=== PATIENT | female | born 1950 | race Caucasian/White ===

== ENCOUNTER 2016-08-03 10:39 | Observation (INO) | payer MEDICARE, BC ==
[2016-08-03 10:23] LABS: ALBUMIN 2.9 gm/dl (3.4-5.0); CALCIUM 9.8 mg/dl (8.5-10.1); POTASSIUM 4.2 mMol/L (3.5-5.1)
[2016-08-03] MEDS ORDERED: SODIUM CHLORIDE 0.9% 1000ML 1,000 ML IV ONE (15:04)
[2016-08-03] MEDS ORDERED: SODIUM CHLORIDE 0.9% FLUSH 10 ML SOL IV PRN (15:08)
[2016-08-03] MEDS ORDERED: ONDANSETRON HCL 4 MG/2 ML SOL IV PRN (15:21)
[2016-08-03] MEDS ORDERED: LEVOFLOXACIN 500 MG (PREMIX) 500 MG/100 ML SOL IV SCH (15:30)
[2016-08-03] MEDS: DEXTROSE/SALINE 0.45/KCL 20MEQ 1,000 ML/1,000 ML SOL IV SCH ×2 (16:19→23:37)
[2016-08-03] MEDS: DIPHENHYDRAMINE 50 MG/ML SOL IV PRN ×2 (17:14→23:36)
[2016-08-03] MEDS: OXYCODONE HYDROCHLORIDE 5 MG TAB PO PRN ×2 (17:25→23:36)
[2016-08-03] MEDS: POLYETHYLENE GLYCOL 17 GM/1 TBS PDS PO SCH (17:26)
[2016-08-03] MEDS: SENNOSIDES A AND B 8.6 MG TAB PO SCH ×2 (17:26→21:19)
[2016-08-03] MEDS ORDERED: ALBUTEROL HFA 60 PUFF/INHALER INH PRN (17:31)
[2016-08-03] MEDS ORDERED: CETIRIZINE HCL PO PRN (17:31)
[2016-08-03] MEDS ORDERED: PSEUDOEPHEDRINE PO PRN (17:31)
[2016-08-03] MEDS ORDERED: TRAMADOL HYDROCHLORIDE 50 MG TAB PO PRN (17:31)
[2016-08-03] MEDS ORDERED: PIPERACILLIN/TAZOBACT 3.375 GM PDS IV ONE ×2 (17:58→23:28)
[2016-08-03] MEDS ORDERED: SODIUM CHLORIDE 0.9% 100 ML 100 ML IV ONE (17:59)
[2016-08-03] MEDS ORDERED: MEDROL DOSPAK PO SCH (18:00)
[2016-08-03] MEDS ORDERED: POTASSIUM CHLORIDE 10 MEQ TER ONE (18:01)
[2016-08-03] MEDS: POTASSIUM CHLORIDE 10 MEQ CAPSULE PO SCH (18:20)
[2016-08-03] MEDS: PIPERACILLIN/TAZOBACT 3.375 GM 3.375 GM in SODIUM CHLORIDE 0.9% 100 ML 100 ML IV SCH ×2 (18:21→23:37)
[2016-08-03] MEDS ORDERED: CETIRIZINE HYDROCHLORIDE 10 MG TAB PO PRN (20:22)
[2016-08-03] MEDS ORDERED: SOLUMEDROL 125 MG/2 ML 125 MG/2 ML PDS IV ONE (21:00)
[2016-08-03] MEDS: CELECOXIB 100 MG CAP PO SCH (21:19)
[2016-08-04] MEDS: PIPERACILLIN/TAZOBACT 3.375 GM 3.375 GM in SODIUM CHLORIDE 0.9% 100 ML 100 ML IV SCH ×2 (05:56→13:18)
[2016-08-04 07:14] LABS: BASOPHILS % (AUTO) 1 % (0-3); EOSINOPHILS % (AUTO) 0 % (0-9); HEMATOCRIT 33 % (35-47); MEAN CORPUSCULAR VOLUME 83 fL (81-99); MONOCYTES % (AUTO) 1.9 % (0-12); NEUTROPHILS % (AUTO) 92.7 % (37-80)
[2016-08-04 07:25] LABS: CALCIUM 8.6 mg/dl (8.5-10.1); POTASSIUM 4.3 mMol/L (3.5-5.1)
[2016-08-04] MEDS: DEXTROSE/SALINE 0.45/KCL 20MEQ 1,000 ML/1,000 ML SOL IV SCH (07:39)
[2016-08-04 07:48] VITALS: BP 138/84; PULSE 106; RESP 20; TEMP 97.9; O2SAT 94
[2016-08-04] MEDS ORDERED: POTASSIUM CHLORIDE 10 MEQ TER ONE (08:41)
[2016-08-04] MEDS: POTASSIUM CHLORIDE 10 MEQ CAPSULE PO SCH (08:55)
[2016-08-04] MEDS: POLYETHYLENE GLYCOL 17 GM/1 TBS PDS PO SCH (08:56)
[2016-08-04] MEDS: SENNOSIDES A AND B 8.6 MG TAB PO SCH (08:56)
[2016-08-04] MEDS ORDERED: PANTOPRAZOLE SODIUM 40 MG ECT PO SCH (09:00)
[2016-08-04] MEDS ORDERED: OMEPRAZOLE 20 MG CAPSULE PO SCH (09:00)
[2016-08-04] MEDS ORDERED: LISINOPRIL 5 MG TAB PO SCH (09:00)
[2016-08-04] MEDS: CELECOXIB 100 MG CAP PO SCH (10:36)
[2016-08-04] MEDS ORDERED: POTASSIUM CHLORIDE 10 MEQ TER PO SCH (18:00)
[2016-08-04] MEDS ORDERED: FLUTICASONE/SALMETEROL 250/50 1 PUFF DSK INH PRN (21:00)
== END 2016-08-04 11:20 | disposition home or self-care (01) | DRG 690 ==
LOC: RAD 10:39 → EDSTATUS 11:00 → ACUTE CARE 14:50 → UNDOADMOB 14:50 → ACUTE CARE 14:55
PROVIDERS: ADMIT Emergency Medicine; ATTEND Emergency Medicine
DX: N10 Acute pyelonephritis (principal)
CPT/HCPCS: 71020; 72131; 74178; 80048; 80053; 85025; 99070; J1200; J1956; J2405; J2543; J2930; Q9967

== ENCOUNTER 2016-08-13 08:40 | Observation (INO) | payer MEDICARE, BC ==
[2016-08-13] MEDS ORDERED: HEPARIN 500 Unit PRE-FILL 100 U/ML SOL IV PRN (09:00)
[2016-08-13 09:48] LABS: BASOPHILS % (AUTO) 1 % (0-3); EOSINOPHILS % (AUTO) 7 % (0-9); HEMATOCRIT 35 % (35-47); MEAN CORPUSCULAR HGB CONC 33.2 gm/dl (32.0-36.0); MEAN CORPUSCULAR VOLUME 82 fL (81-99); MONOCYTES % (AUTO) 6.7 % (0-12); NEUTROPHILS % (AUTO) 71.2 % (37-80)
[2016-08-13 10:00] LABS: ALBUMIN 2.6 gm/dl (3.4-5.0); CALCIUM 8.6 mg/dl (8.5-10.1); POTASSIUM 3.7 mMol/L (3.5-5.1)
[2016-08-13] MEDS ORDERED: SODIUM CHLORIDE 0.9% 250 ML 250 ML IV ONE (12:19)
[2016-08-13] MEDS ORDERED: VANCOMYCIN HYDROCHLORIDE 500 MG PDS IV ONE (12:19)
[2016-08-13] MEDS ORDERED: TRAMADOL HYDROCHLORIDE 50 MG TAB PO PRN (12:31)
[2016-08-13] MEDS ORDERED: ALBUTEROL HFA 60 PUFF/INHALER INH PRN (12:31)
[2016-08-13] MEDS ORDERED: FLUTICASONE/SALMETEROL 250/50 1 PUFF DSK INH PRN (12:31)
[2016-08-13] MEDS: SODIUM CHLORIDE 0.9% FLUSH 10 ML SOL IV SCH ×2 (12:33→20:58)
[2016-08-13] MEDS: CEFTAZIDIME 1 GM PDS IV SCH ×2 (12:33→20:53)
[2016-08-13] MEDS: VANCOMYCIN HCL 500 MG PDS 1,000 MG in SODIUM CHLORIDE 0.9% 250 ML 250 ML IV SCH (13:09)
[2016-08-13] MEDS: APAP/CODEINE 300/30 TAB PO PRN ×3 (14:15→21:09)
[2016-08-13] MEDS: ACETAMINOPHEN 500 MG 500 MG TAB PO SCH (21:08)
[2016-08-13] MEDS: CELECOXIB 100 MG CAP PO SCH (21:08)
[2016-08-13] MEDS: DIPHENHYDRAMINE 25 MG CAP PO SCH (21:08)
[2016-08-13] MEDS ORDERED: PATIENT EDUCATION 1 MISC PRN (21:18)
[2016-08-14] MEDS ORDERED: SODIUM CHLORIDE 0.9% 250 ML 250 ML IV ONE ×3 (00:33→20:42)
[2016-08-14] MEDS ORDERED: VANCOMYCIN HYDROCHLORIDE 500 MG PDS IV ONE ×3 (00:33→20:40)
[2016-08-14] MEDS: VANCOMYCIN HCL 500 MG PDS 1,000 MG in SODIUM CHLORIDE 0.9% 250 ML 250 ML IV SCH ×2 (01:00→12:24)
[2016-08-14] MEDS: CEFTAZIDIME 1 GM PDS IV SCH ×3 (04:40→21:02)
[2016-08-14] MEDS: SODIUM CHLORIDE 0.9% FLUSH 10 ML SOL IV SCH ×4 (04:41→21:01)
[2016-08-14] MEDS: APAP/CODEINE 300/30 TAB PO PRN ×6 (04:41→21:02)
[2016-08-14] MEDS: ENOXAPARIN 40 MG SOL SC SCH (10:15)
[2016-08-14] MEDS: PANTOPRAZOLE SODIUM 40 MG ECT PO SCH (10:16)
[2016-08-14] MEDS: CELECOXIB 100 MG CAP PO SCH ×2 (10:16→21:02)
[2016-08-14] MEDS: LISINOPRIL 5 MG TAB PO SCH (10:17)
[2016-08-14] MEDS: DIPHENHYDRAMINE 25 MG CAP PO SCH (21:02)
[2016-08-14] MEDS: ACETAMINOPHEN 500 MG 500 MG TAB PO SCH (21:02)
[2016-08-14 22:16] VITALS: RESP 18
[2016-08-15] MEDS: APAP/CODEINE 300/30 TAB PO PRN ×4 (00:57→12:03)
[2016-08-15] MEDS: SODIUM CHLORIDE 0.9% FLUSH 10 ML SOL IV SCH ×5 (00:57→13:37)
[2016-08-15] MEDS: VANCOMYCIN HCL 500 MG PDS 1,000 MG in SODIUM CHLORIDE 0.9% 250 ML 250 ML IV SCH ×2 (00:57→12:03)
[2016-08-15 03:31] VITALS: O2SAT 96
[2016-08-15] MEDS: CEFTAZIDIME 1 GM PDS IV SCH ×2 (04:32→13:35)
[2016-08-15 07:25] LABS: HEMATOCRIT 30 % (35-47); MEAN CORPUSCULAR HGB CONC 34.3 gm/dl (32.0-36.0); MEAN CORPUSCULAR VOLUME 82 fL (81-99)
[2016-08-15 07:27] LABS: CALCIUM 8.2 mg/dl (8.5-10.1); POTASSIUM 3.7 mMol/L (3.5-5.1)
[2016-08-15 08:12] LABS: BASOPHILS % (MANUAL) 0 % (0-3); EOSINOPHILS % (MANUAL) 5 % (0-9); LYMPHOCYTES % (MANUAL) 19 % (10-50); NORMAL RBCS PRESENT
[2016-08-15] MEDS: PANTOPRAZOLE SODIUM 40 MG ECT PO SCH (08:25)
[2016-08-15] MEDS: LISINOPRIL 5 MG TAB PO SCH (08:26)
[2016-08-15] MEDS: ENOXAPARIN 40 MG SOL SC SCH (08:26)
[2016-08-15] MEDS: CELECOXIB 100 MG CAP PO SCH (08:26)
[2016-08-15 08:48] VITALS: BP 139/83; PULSE 91; TEMP 98.1
[2016-08-15] MEDS ORDERED: VANCOMYCIN HYDROCHLORIDE 500 MG PDS IV ONE (11:58)
== END 2016-08-15 14:30 | disposition home health service (06) | DRG 552 ==
LOC: ACUTE CARE 09:11
PROVIDERS: ADMIT Emergency Medicine; ATTEND Emergency Medicine
DX: M46.44 Discitis, unspecified, thoracic region (principal); I10 Essential (primary) hypertension
CPT/HCPCS: 36415; 71010; 80048; 80053; 85007; 85025; 85027; 85651; 87040; 99211; J0713; J1650; J3370